=== PATIENT | male | born 1990 | race Caucasian/White ===

== ENCOUNTER → 2023-01-03 | Outpatient (CLI) | payer BC ==
--- NOTE | 2023-01-03 12:49 | US ---
EXAMINATION TYPE: US scrotum with doppler. Grayscale and color Doppler Duplex imaging performed of katarina dixon scrotum. DATE OF EXAM: 01/03/2023 COMPARISON: NONE CLINICAL INDICATION: Male, 32 years old with history of N50.812 LEFT TESTICULAR PAIN; Dull left sided testicular pain. Patient feels lump left testicle. EXAM MEASUREMENTS: TESTICLES: Right Testicle: 5.1 x 3.2 x 2.3 cm Left Testicle: 4.7 x 3.4 x 2.2 cm EPIDIDYMIS HEAD: Right Epididymis: 1.2 x 1.2 x 1.3 cm Left Epididymis: 1.1 x 0.9 x 1.6 cm Anechoic area seen adjacent to left epididymal head and left testicle measurin.8 x 0.8 x 0.7 cm. Doppler performed to assess for testicular vascularity; bilateral color flow and waveforms are seen. Presence of hydroceles: Yes, right: 5.6 x 1.2 x 0.9 cm. Left: 3.2 x 0.9 x 0.8 cm. Presence of varicoceles: yes, vessels appear prominent on left measuring 3 mm. IMPRESSION: 1. Appropriate arterial and spectral venous waveforms to the testes. 2. Small bilateral hydroceles. 3. No evidence for testicular mass. 4. Left hydrocele.
== END | disposition home or self-care (01) ==
LOC: RADUSWWP 12:04
PROVIDERS: ATTEND Family Medicine
DX: N43.3 Hydrocele, unspecified (principal)
CPT/HCPCS: 76870; 93975